=== PATIENT | female | born 1945 | race Caucasian/White ===

== ENCOUNTER 2022-06-24 15:20 | Inpatient (IN) | payer BC ==
[~2022-06-24] VITALS: Ht 172.7 cm; Wt 157.1 kg
--- NOTE | 2022-06-24 15:47 | NUR ---
pt seen by MD, resting comfortably in bed. denies chest pain at this time, currently sinus rhythm on monitor and VS WNL. EKG done and handed to
[2022-06-24 15:53] LABS: HEMATOCRIT 34.1 % (31.2-41.9); MEAN CORPUSCULAR HEMOGLOBIN 31.1 uug (24.7-32.8); MEAN CORPUSCULAR VOLUME 92.6 fL (75.5-95.3); PLATELET COUNT (AUTO) 298 K/uL (179-408)
[2022-06-24 16:02] LABS: CREATININE 1.1 mg/dL (0.6-1.3); POTASSIUM 3.9 mmol/L (3.5-5.1)
[2022-06-24 16:08] LABS: BILIRUBIN,TOTAL 0.1 mg/dL (0.2-1.0); TOTAL PROTEIN, SERUM 7.1 g/dL (6.4-8.2)
[2022-06-24] MEDS ORDERED: HYDR-3980 PO (16:43)
[2022-06-24] MEDS ORDERED: PRIM50TA27 PO (16:43)
[2022-06-24] MEDS ORDERED: BUPR-319 PO (16:43)
[2022-06-24] MEDS ORDERED: [UNRECOGNIZED DRUG - CODE] PO (16:43)
[2022-06-24] MEDS ORDERED: IBAN150T16 PO (16:43)
[2022-06-24] MEDS ORDERED: LEVO100T10 PO (16:43)
[2022-06-24] MEDS ORDERED: ARIP2TAB3 PO (16:43)
--- NOTE | 2022-06-24 19:30 | NUR ---
OBTAINED BEDSIDE REPORT FROM OUT GOING RN. PATIENT A,A AND O X 4 AND AWAITING ADMITTED BED. NO DISTRESS NOTED. VSS
--- NOTE | 2022-06-24 19:53 | NUR ---
report given to Amrita CALDWELL, pt in stable condition.
[2022-06-24] MEDS ORDERED: MAGNESIUM HYDROXIDE 30 ML LIQUID UDC PO PRN (20:30)
[2022-06-24] MEDS ORDERED: TEMAZEPAM 15 MG CAPSULE PO PRN (20:30)
[2022-06-24] MEDS ORDERED: ONDANSETRON 4 MG/2 ML VIAL IV PRN (20:30)
[2022-06-24] MEDS ORDERED: HYDROCODONE/APAP 5-325MG TABLET PO PRN (20:30)
--- NOTE | 2022-06-24 22:00 | NUR ---
ASSISTED X 5 PERSIST TO TRANSFER FROM [facility] BED. CONNECTED TO MONITOR SR.
--- NOTE | 2022-06-24 22:35 | NUR ---
Paged Epic panel, waiting for Dr Lozada to call back.
--- NOTE | 2022-06-25 00:16 | NUR ---
REPORT GIVEN TO RN RECEIVING PATIENT INTO RM 327. ADMITTED FOR CP.VSS NO DISTRESS.
--- NOTE | 2022-06-25 00:34 | NUR ---
Received pt from er via [facility]. Under the care of Dr. Pat. Dx: Chest pain. Pt in no acute disease. Iv intact. [facility] assessment done. Pt on 2l Nasal cannula. Belonging list done. Admission process and care plan initiated. Safety and comfort provided. Will continue to monitor.
[2022-06-25 01:04] VITALS: BP 126/60
[2022-06-25 04:00] VITALS: BP 123/57
--- NOTE | 2022-06-25 05:14 | NUR ---
Pt in no acute disrtress. Iv intact. All needs are met.Safety and comfort provided. Will endorse to incoming nurse for continuity of care.
[2022-06-25] MEDS: PANTOPRAZOLE SODIUM 40 MG TABLET.DR PO SCH (06:03)
[2022-06-25] MEDS: LEVOTHYROXINE SODIUM 100 MCG TABLET PO SCH (06:03)
[2022-06-25 07:11] LABS: HEMATOCRIT 32.9 % (31.2-41.9); MEAN CORPUSCULAR HEMOGLOBIN 31.4 uug (24.7-32.8); PLATELET COUNT (AUTO) 269 K/uL (179-408)
[2022-06-25 07:28] LABS: BILIRUBIN,TOTAL 0.2 mg/dL (0.2-1.0); CREATININE 0.9 mg/dL (0.6-1.3); MAGNESIUM 2.1 mg/dL (1.8-2.4); PHOSPHOROUS 4.6 mg/dL (2.5-4.9); TOTAL PROTEIN, SERUM 6.7 g/dL (6.4-8.2)
[2022-06-25 07:49] LABS: THYROID STIMULATING HORMONE 3.911 mIU/mL (0.358-3.740)
[2022-06-25] MEDS: BOOST BREEZE 237 ML LIQUID PO SCH (09:00)
[2022-06-25] MEDS ORDERED: LACTOSE FREE FOOD PO SCH (09:00)
[2022-06-25] MEDS: PRIMIDONE 50 MG TABLET PO SCH (10:03)
[2022-06-25] MEDS: ASPIRIN EC 81 MG TABLET.DR PO SCH (10:03)
[2022-06-25] MEDS: ARIPIPRAZOLE 2 MG TABLET PO SCH (10:03)
[2022-06-25] MEDS: buPROPion XL 150 MG TAB.SR.24H PO SCH (10:04)
[2022-06-25] MEDS: ENOXAPARIN SODIUM 40 MG/0.4 ML DISP.SYRIN SQ SCH ×2 (10:45→13:39)
[2022-06-25 12:56] VITALS: BP 134/64
[2022-06-25] MEDS: ACETAMINOPHEN 325 MG TABLET PO PRN ×2 (14:26→22:12)
[2022-06-25 16:16] VITALS: BP 152/77
[2022-06-25] MEDS: METOPROLOL TARTRATE 25 MG TABLET PO SCH ×2 (18:44→20:34)
--- NOTE | 2022-06-25 19:55 | NUR ---
Received patient lying comfortably in bed. AAOx4. In no apparent distress. No complain of pain or SOB. O2 at 2LPm via NC in place. NSR on tele with HR of 85/min. IV on right hand intact and patent. Needs assessed and attended to. Safety measure initiated and call light within reached.
[2022-06-25 20:53] VITALS: BP 146/70
[2022-06-25] MEDS ORDERED: ATORVASTATIN 20 MG TABLET PO SCH (21:00)
[2022-06-26 00:20] VITALS: BP 146/60
[2022-06-26 04:22] VITALS: BP_SYST 111; BP_SYST 123; BP_DIAS 48; BP_DIAS 61
--- NOTE | 2022-06-26 05:11 | NUR ---
Slept well during the night. O2 at 2LPm via NC in place. NSR on tele with HR of 67/min. IV on right hand intact and patent. NPo status. Possible CTA today. Needs assessed and attended to. Safety measure maintained and call light within reached.
[2022-06-26] MEDS: PANTOPRAZOLE SODIUM 40 MG TABLET.DR PO SCH (06:05)
[2022-06-26] MEDS: LEVOTHYROXINE SODIUM 100 MCG TABLET PO SCH (06:05)
[2022-06-26] MEDS: ACETAMINOPHEN 325 MG TABLET PO PRN ×2 (06:19→09:08)
[2022-06-26 08:29] VITALS: BP 135/76
[2022-06-26] MEDS: buPROPion XL 150 MG TAB.SR.24H PO SCH (09:07)
[2022-06-26] MEDS: ASPIRIN EC 81 MG TABLET.DR PO SCH (09:07)
[2022-06-26] MEDS: METOPROLOL TARTRATE 25 MG TABLET PO SCH (09:07)
[2022-06-26] MEDS: PRIMIDONE 50 MG TABLET PO SCH (09:07)
[2022-06-26] MEDS: ARIPIPRAZOLE 2 MG TABLET PO SCH (09:08)
[2022-06-26] MEDS: ENOXAPARIN SODIUM 40 MG/0.4 ML DISP.SYRIN SQ SCH (09:09)
[2022-06-26] MEDS: BOOST BREEZE 237 ML LIQUID PO SCH (09:10)
[2022-06-26 11:19] VITALS: BP 149/74
--- NOTE | 2022-06-26 12:00 | NUR ---
PT TALKED TO MD. PATIENT VERBALIZED SHE WANTS TO GO HOME. MD CLEAREDE HER FOR DISCHARGE
[2022-06-26] MEDS ORDERED: NITR0.4T48 SL (12:55)
[2022-06-26] MEDS ORDERED: PANT40TA2 PO (12:55)
[2022-06-26] MEDS ORDERED: PROTEIN SUPPLEMENT (PROSTAT) 30 ML LIQUID PO SCH (13:30)
--- NOTE | 2022-06-26 14:31 | NUR ---
PT IS DISCHARGE. PT WILL GO HOME WITH TONI (SPOUSE). PT VITALS SIGN WNL. ALL BELONGINGS ACCOUNTED FOR. PT WILL GO VIA WHEELCHAIR AND PRIVATE CAR.
== END 2022-06-26 14:30 | disposition home or self-care (01) | DRG 392 ==
LOC: ER 15:20 → TELE3 20:20
PROVIDERS: ADMIT Nurse Practitioner Acute Care; ATTEND Nurse Practitioner Acute Care
DX: K21.9 Gastro-esophageal reflux disease without esophagitis (principal); D68.59 Other primary thrombophilia; I20.0 Unstable angina; Z68.43 Body mass index [BMI] 50.0-59.9, adult; E44.0 Moderate protein-calorie malnutrition; E66.01 Morbid (severe) obesity due to excess calories; G89.29 Other chronic pain; F32.9 Major depressive disorder, single episode, unspecified; M81.0 Age-related osteoporosis without current pathological fracture; Z20.822 Contact with and (suspected) exposure to COVID-19; Z99.3 Dependence on wheelchair; Z87.440 Personal history of urinary (tract) infections; M19.90 Unspecified osteoarthritis, unspecified site; Z99.81 Dependence on supplemental oxygen
CPT/HCPCS: 36415; 71045; 83735; 84100; 84443; 84484; 85025; 93005; 93307; A4663; G0378; J1650